=== PATIENT | female | born 1955 | race Caucasian/White ===

== ENCOUNTER 2016-07-12 12:15 | Emergency (ER) | payer OTHER ==
--- NOTE | 2016-07-12 16:19 | DIAGNOSTIC IMAGING REPORT ---
PROCEDURE: ABDOMEN/PELVIS WITH CONTRAST CLINICAL INDICATION: ABDOMINAL PAIN TECHNIQUE: 125 ml of Isovue 300 were injected intravenously and axial images were obtained of the abdomen and pelvis with sagittal and coronal reformations. COMPARISON: None. FINDINGS: ABDOMEN: Intact breast implants are present. Clear lung bases. Normal sized heart. Small hiatal hernia. Mild hyperemia of the distal gastric mucosa but no evidence of perforation or significant perigastric inflammation. The liver, gallbladder, adrenal glands, kidneys, pancreas and spleen are normal. The abdominal aorta is normal in its course and caliber. Trace atherosclerosis. There are no suspicious calcifications, retroperitoneal adenopathy or masses. The upper small bowel loops, and mesentery are normal. Intact anterior abdominal wall. No free fluid or inflammation. PELVIS: The appendix and pelvic small bowel loops are normal. Mild to moderately increased solid amount of stool in the colon and rectum. The uterus, ovaries, and pelvic vessels are normal. Incompletely filled urinary bladder demonstrates a mildly thickened wall. Correlate clinically. Trace free pelvic fluid. No adenopathy, or pelvic mass. Intact osseous structures with mild degenerative endplate changes. IMPRESSION: 1. Mild hyperemia of the distal gastric mucosa suggestive of gastritis or peptic ulcer disease without perforation. 2. Small hiatal hernia. 3. Mild to moderate retained solid stool. 4. Discussed with Dr. Bishop in the emergency room. All CT scans at this facility use dose modulation, iterative reconstruction, and/or weight-based dosing when appropriate to reduce radiation dose to as low as reasonably achievable.
--- NOTE | 2016-07-12 16:25 | ED ORDER SUMMARY ---
..... Patient: COLIN OLIVEROS OrderSheet [facility] VisitID: [id number] [address] [place] [address] 60y, F Registration Date/Time: 07/12/2016 ORDER SHEET Weight: 64.4 kg (stated) Allergies: Penicillins GENERAL ORDERS: Cardiac Panel Stat (12:51 07/12/2016 Jane MAYFIELD) (Ack 12:53 Maria Victoria) (12:57 SRlalats R.N.) Lipase Urgent (12:51 07/12/2016 Jane MAYFIELD) (Ack 12:53 Maria Victoria) (12:57 Edson R.N.) CRP Urgent (12:51 07/12/2016 Jane MAYFIELD) (Ack 12:53 Maria Victoria) (12:57 oberts R.N.) CT Abd/Pel w Cont (No) (N/A) Urgent (15:24 07/12/2016 Jane MAYFIELD) (Ack 15:25 TBergley) (16:00 Allie R.N.) MEDICATION ORDERS: GI Cocktail WHITE PO 50 mL (NOW) (12:52 07/12/2016 Jane MAYFIELD) (13:01 JOSE MANUELnebel R.N.) - (oxycodone 20 mg SR 1 po) (15:28 07/12/2016 Jane MAYFIELD) (Ack 15:30 MARAoardley R.N.) (15:39 Catarinodley R.N.) Alprazolam PO 2 mg po (NOW) (15:28 07/12/2016 Jane AMYFIELD) (Ack 15:31 Allie R.N.) (16:04 Catarinodley R.N.) IV FLUIDS: Zofran IV 4 mg (NOW) (12:52 07/12/2016 Jane MAYFIELD) (13:02 Javier R.N.) IV Saline Lock (12:52 07/12/2016 Jane MAYFIELD) (12:58 SRoberts R.N.) ORDER SHEET NOTES: [Electronically signed by Franco Marquez R.N. (16:41 07/12/2016)] [Electronically signed by Carl Bishop MD (10:16 07/13/2016)] [Electronically locked/signed by Franco Marquez R.N. (16:41 07/12/2016)]
--- NOTE | 2016-07-12 16:25 | ED NURSING NOTES ---
Clinical Report - Nurses [facility] [address] [place] [address] 07/12/2016 12:18 Patient: COLIN OLIVEROS TRIAGE Triage time 12:Jul 12 2016. Acuity: LEVEL 2. Chief Complaint: CHEST PAIN. Alert. No acute distress. KAITLIN COMA SCORE: Kaitlin Coma Scale: 15- eyes open spontaneously (4); best verbal response- oriented x 4 (5); best motor response- obeys commands (6). --12:26 Alexus Edgar R.N. 12:20 07/12/16. BP: 105/65. HR: 74. RR: 16. O2 saturation: 94%. Temp: 98.6 F. Pain level now: 08/12. --12: Alexus Edgar R.N. Weight: 64.4 kg stated. Height/Length: 62 inches Per Patient. BMI: 26. --12:26 Alexus Edgar R.N. Medications ALPRAZolam Oral (Tablet 2 mg) 2 1/2 tablets, daily in divided doses. CeleXA Oral 40 mg, daily. Estradiol Oral (Tablet 0.5 mg) 1 tablet, daily. LamoTRIgine Oral (Tablet Extended Release 24 Hour 200 mg) 1 tablet, twice daily. Omeprazole Oral 20 mg, daily. OxyCODONE HCl Oral 20 mg, 4-5 times a day. --12:22 Alexus Edgar R.N. Multivitamins Oral. --12:22 Alexus Edgar R.N. Allergies Penicillins.(vomiting) --12:22 Alexus Edgar R.N. History Arrived by private vehicle. Historian: family. Accompanied by family. Onset. (about 1 weeks). She has had nausea. 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 PAST MEDICAL HX: Immunizations: up-to-date. SOCIAL HX: Never smoker. No alcohol use or drug use. No infectious disease exposure. SELF HARM ASSESSMENT: A self harm assessment was performed. The patient answered "no" to the question "Do you have thoughts of harming or killing yourself?". FALL RISK ASSESSMENT: Fall risk assessment completed. No fall risk identified. NUTRITIONAL RISK ASSESSMENT: The nutritional risk assessment revealed no deficiencies. FUNCTIONAL ASSESSMENT: Functional assessment: no impairments noted. LEARNING NEEDS ASSESSMENT: The learning needs assessment revealed no barriers. ABUSE ASSESSMENT: Abuse assessment: The patient was asked "Do you feel safe in your home?". SKIN INTEGRITY ASSESSMENT: Skin integrity risk assessment completed. No skin integrity risk identified. --12:26 Alexus Edgar R.N. PROBLEMS: Dysfunctional Uterine Bleeding. Diarrhea. Vomiting. Immunizations. LNMP - Last Normal Menstrual Period. Gastroesophageal Reflux Disease. Back Pain. Back Injury. Bipolar Disorder. --12:23 Alexus Edgar R.N. ADDITIONAL SURGERIES: Dental Surgery. Dilatation & Curettage. Laparoscopy. --12:23 Alexus Edgar R.N. Interventions ID band on patient. To room. --12: Alexus Edgar R.N. PHYSICAL ASSESSMENT GENERAL / NEURO / PSYCH: Alert. Oriented X 4. RESPIRATORY: Respirations not labored. Lower sternal tenderness and xiphoid tenderness. CVS: Capillary refill less than 2 seconds. GI / : Abdomen soft. Abdominal tenderness in the upper abdomen. EXTREMITIES: No lower extremity edema. SKIN: Skin is warm and dry. --12:27 Alexus Edgar R.N. NURSING PROGRESS NOTES biofuels processing technician, pulse oximeter and NIBP monitor placed on patient; applications tester- Lead II; monitor alarms on. Patient gowned. Head of bed elevated. Patient identifiers checked. Call light placed in reach. Side rails up x 1. Bed placed in lowest position. Brakes of bed on. --12:28 Alexus Edgar R.N. 12:28 07/12/2016 Site #1 started via IV in the right hand with an 20g angiocath, with aseptic technique and good blood return; one attempt. Blood drawn: rainbow set. Labeled in the presence of the patient and sent to the lab. Saline lock flushed with 10 mL saline. --12:28 Alexus Edgar R.N. EKG time: (1227). EKG was ordered, performed by a tech and shown to the ED physician. --12:29 July, Miriam, ER Tech1 13:01 07/12/2016 GI Cocktail (Magnesium-Aluminum) PO. Allergies verified and confirmed 5 rights. --13:01 Alexus Edgar R.N. 13:02 07/12/2016 Zofran (Ondansetron HCl) IVP 4 mg given over 2 minute(s) via site #1. Allergies verified and confirmed 5 rights. IV patency established. IV site checked: no pain, redness, or swelling. IV flushed thoroughly pre- and post-medication administration. IVP given by RN. --13:02 Alexus Edgar R.N. 13:35 07/12/16. BP: 103/72. HR: 80. RR: 22. O2 saturation: 94%. Pain level now: 08/12. --13:36 Alexus Edgar R.N. 13:56 07/12/16. BP: 98/54. HR: 82. RR: 14. O2 saturation: 97% on room air. --13:57 Franco Marquez R.N. 13:57 07/12/16. Cardiac rhythm: normal sinus rhythm. --13:57 Franco Marquez R.N. 14:01 07/12/16. Reassessment after medication administered. Overall patient status is the same- she states feels the same. --14:01 Franco Marquez R.N. 15:39 07/12/2016 Oxycodone SR (Oxycodone-Acetaminophen) PO Tablets 20 mg given. Allergies verified, confirmed 5 rights and sedative warning given to the patient. --15:39 Franco Marquez R.N. 16:04 07/12/2016 Alprazolam PO 2 mg given. Allergies verified, confirmed 5 rights and sedative warning given to the patient. --16:04 Franco Marquez R.N. DISPOSITION / DISCHARGE 16:37 07/12/2016 Site #1 removed upon discharge. Catheter intact. Bandage applied. --16:37 Franco Marquez R.N. 16:37 07/12/16. Condition at departure: improved. The goals identified in the patient's plan of care were met. No learning barriers present. Discharge instructions provided and reviewed with the patient and spouse. Reviewed warnings. Reviewed medication(s). Treatments reviewed. Patient and spouse verbalized understanding. Written instructions provided in Belgian. ( Called in RX per DC instructions to [facility] per patient request). The patient was discharged by the physician. She was discharged home and accompanied by family. She left the Emergency Department ambulatory and via private vehicle. Family member driving. FALL RISK ASSESSMENT: Fall risk assessment completed. No fall risk identified. --16:39 Franco Marquez R.N. 16:37 07/12/16. BP: 101/60. HR: 79. RR: 16. O2 saturation: 100% on room air. Temp: 97.9 F (oral). Pain level now: 04/14. --16:39 Franco Marquez R.N. 16:39 07/12/16. Departure time: 16:39. --16:39 Franco Marquez R.N. Locked/Released at 07/12/2016 16:41 by Franco Marquez R.N.
--- NOTE | 2016-07-12 16:25 | ED CLINICAL REPORT ---
Clinical Report - Physicians/Mid Levels [facility] [address] [place] [address] 07/12/2016 12:18 Patient: COLIN OLIVEROS Time Seen: 12:39 Jul 12 2016. Arrived- By private vehicle. Historian- patient. CPT: ER phys charges level 5 (#248999). HISTORY OF PRESENT ILLNESS Chief Complaint: CHEST PAIN. This started about 1 weeks RN BUILDING and is still present. It was gradual in onset and has been constant (lasting 24 hours a day.). Onset during light activity. It is described as "pain" and it is described as located in the epigastric area. At its maximum, severity described as moderate. When seen in the E.D., severity described as moderate. Modifying factors. Not worsened by anything. Not relieved by anything. The patient has had nausea. (Does develop nausea when trying to eat.). Similar symptoms previously: None. Recent medical care: Not recently seen/assessed. REVIEW OF SYSTEMS No fever, chills, cough, pedal edema or calf pain. No fainting episodes, sore throat, black stools, difficulty with urination or skin rash. No enlarged lymph nodes, joint pain or bloody stools. The patient has had abdominal pain. All systems otherwise negative, except as recorded above. PAST HISTORY Dysfunctional Uterine Bleeding. Diarrhea. Vomiting. Immunizations. LNMP - Last Normal Menstrual Period. Gastroesophageal Reflux Disease. Back Pain. Back Injury. Bipolar Disorder. ADDITIONAL SURGERIES: Dental Surgery. Dilatation & Curettage. Laparoscopy. No history of coronary artery disease, heart disease, lung disease, GI disease or heart rhythm problems. No history of pulmonary embolism, hypertension or diabetes mellitus. Medications: Multivitamins Oral. ALPRAZolam Oral (Tablet 2 mg) 2 1/2 tablets, daily in divided doses. CeleXA Oral 40 mg, daily. Estradiol Oral (Tablet 0.5 mg) 1 tablet, daily. LamoTRIgine Oral (Tablet Extended Release 24 Hour 200 mg) 1 tablet, twice daily. Omeprazole Oral 20 mg, daily. OxyCODONE HCl Oral 20 mg, 4-5 times a day. Allergies: Penicillins.(vomiting). SOCIAL HISTORY Never smoker. No alcohol use or drug use. ADDITIONAL NOTES The nursing notes have been reviewed. PHYSICAL EXAM Vital Signs: 07/12/2016 12:20 BP: 105/65. HR: 74. RR: 16. O2 saturation: 94%. Temp: 98.6 F. Pain level now: 08/12. Appearance: Alert. No acute distress. Eyes: Pupils equal, round and reactive to light. Eyes normal inspection. ENT: Ears normal. Nose normal. Pharynx normal. Neck: Normal inspection. Neck supple. CVS: Normal heart rate and rhythm. Heart sounds normal. Pulses normal. Respiratory: No respiratory distress. Breath sounds normal. Chest nontender. Abdomen: Soft. Moderate tenderness in the epigastric area with guarding present. Abnormal bowel sounds: diminished. No mass. Back: Normal external inspection. No CVA tenderness. Skin: Skin warm. Normal skin color. No rash. Extremities: Extremities exhibit normal ROM. No calf tenderness. No lower extremity edema. Neuro: Oriented X 3. No motor deficit. No sensory deficit. Reflexes normal. LABS, X-RAYS, AND EKG EKG: Normal sinus rhythm. Normal P waves. Normal SHEILA. Normal QRS complex. Normal axis. non-specific T wave changes anterolateral.,. Prior EKG unavailable. The study has been interpreted contemporaneously. The study has been independently viewed by me. The EKG appears to be a good tracing. Abdominal CT: Moderate retained stool , small hiatal hernia and moderate gastritis. Laboratory Tests: CBC w Diff: (KENIA: 07/12/2016 12:30) ( MsgRcvd 07/12/2016 13:02) Final results Test Result Flag Units (Reference) WHITE BLOOD COUNT 5.4 K/uL (4.5-11.5) RED BLOOD COUNT 4.20 M/uL (4.00-5.20) HEMOGLOBIN 11.5 L gm/dL (12.0-16.0) HEMATOCRIT 35.2 L % (36.0-46.0) MEAN CELL VOLUME 84 fL (80-100) MEAN CORPUSCULAR HGB 27 pg (26-34) MEAN CORPUSCULAR HGB CONC 33 g/dL (31-37) RED CELL DISTRIBUTION WIDTH 14.3 % (11.6-14.8) PLATELET COUNT 304 K/uL (150-400) NEUTROPHIL % 60.7 % (50-75) LYMPH % 29.8 % (25-40) MONO % 5.9 % (3-14) EOSINOPHIL % 3.3 % (0-4) BASOPHIL % 0.3 % (0-2) CHEM 13 PANEL: (KENIA: 07/12/2016 12:30) ( MsgRcvd 07/12/2016 15:10) Final results Test Result Flag Units (Reference) GLUCOSE 99 mg/dL (70-110) BUN 10 mg/dL (7-18) CREATININE 0.9 mg/dL (0.6-1.3) Estimated GFR >60 mL/min Estimated GFR- >60 mL/min Note: Persistent reduction over 3 months in eGFR<60 mL/min/1.73 m2 defines CKD. Patients with eGFR values>=60 mL/min/1.73 m2 may also have CKD if evidence ofpersistent proteinuria. Additional information may be foundat www.kidney.org. SODIUM 142 mmol/L (136-145) POTASSIUM 4.0 mmol/L (3.5-5.1) CHLORIDE 102 mmol/L (98-107) CARBON DIOXIDE 31 mmol/L (21-32) CALCIUM 8.9 mg/dL (8.5-10.1) TOTAL PROTEIN 7.8 g/dL (6.4-8.2) ALBUMIN 4.1 g/dL (3.3-5.0) BILIRUBIN, TOTAL 0.2 mg/dL (0.0-1.0) ALKALINE PHOSPHATASE 69 U/L (46-116) AST (SGOT) 21 U/L (15-37) ALT (SGPT) 25 U/L (12-78) MAGNESIUM 1.9 mg/dL (1.8-2.4) LIPASE 142 U/L (73-393) CPK 103 U/L (24-260) TROPONIN I <0.05 ng/mL (0.00-1.5) TROPONIN REFERENCE RANGE:<0.1 NEGATIVE0.1-1.5 INDETERMINANT>1.5 POSITIVE C-REACTIVE PROTEIN < 0.2 mg/dL (0.0-0.9) . PROGRESS AND PROCEDURES Course of Care: Heplock Zofran 4 mg Iv White GI cocktail. notesa she is a heavy cola drinker and eats a lot of chocolate. Patient/family counseled. Disposition: Discharged. Condition: stable. CLINICAL IMPRESSION Chest pain of GI origin (due to hiatal hernia) (gastritis). INSTRUCTIONS Avoid alcohol and NSAIDS. Examples of NSAIDS include aspirin, ibuprofen (Advil) and naproxen (Aleve). Avoid spicy foods. Other diet: No caffeine, no cola and no chocolate. No alcohol. Warnings: Further evaluation is necessary. SEDATIVE MEDICATION: You were given sedative medication during your visit. Do not drive or operate dangerous machinery. GENERAL WARNINGS: Return or contact your physician immediately if your condition worsens or changes unexpectedly, if not improving as expected, or if other problems arise. Your Current Medications: CONTINUE TAKING THE FOLLOWING MEDICATIONS: ALPRAZolam Oral : Tablet 2 mg, 2 1/2 tablets daily in divided doses. CeleXA Oral : 40 mg daily. Estradiol Oral : Tablet 0.5 mg, 1 tablet daily. LamoTRIgine Oral : Tablet Extended Release 24 Hour 200 mg, 1 tablet twice daily. Multivitamins Oral. Omeprazole Oral : 20 mg daily. OxyCODONE HCl Oral : 20 mg 4-5 times a day. Prescription Medications: Carafate 1 gm tablets: take 1 orally four times daily (1 hour before meals and at bedtime). Dispense sixty (60). No refills. Substitution is permissible. Prilosec 40 mg capsules: take 1 capsule orally every day for 10 days. Dispense ten (10). No refill. Substitution is permissible. Follow-up: Follow up with your doctor in ten days. Call for an appointment. Understanding of the discharge instructions verbalized by patient. Discharge instructions reviewed with and understanding was verbalized by spouse. (Electronically signed by Carl Bishop MD 07/13/2016 10:16)
--- NOTE | 2016-07-12 16:25 | ED ORDER SUMMARY ---
..... Patient: COLIN OLIVEROS OrderSheet [facility] VisitID: [id number] [address] [place] [address] 60y, F Registration Date/Time: 07/12/2016 ORDER SHEET Weight: 64.4 kg (stated) Allergies: Penicillins GENERAL ORDERS: Cardiac Panel Stat (12:51 07/12/2016 Jane MAYFIELD) (Ack 12:53 Maria Victoria) (12:57 SRlalats R.N.) Lipase Urgent (12:51 07/12/2016 Jane MAYFIELD) (Ack 12:53 Maria Victoria) (12:57 Edson R.N.) CRP Urgent (12:51 07/12/2016 Jane MAYFIELD) (Ack 12:53 Maria Victoria) (12:57 oberts R.N.) CT Abd/Pel w Cont (No) (N/A) Urgent (15:24 07/12/2016 Jane MAYFIELD) (Ack 15:25 TBergley) (16:00 Allie R.N.) MEDICATION ORDERS: GI Cocktail WHITE PO 50 mL (NOW) (12:52 07/12/2016 Jane MYAFIELD) (13:01 JOSE MANUELnebel R.N.) - (oxycodone 20 mg SR 1 po) (15:28 07/12/2016 Jane MAYFIELD) (Ack 15:30 MARAoardley R.N.) (15:39 Catarinodley R.N.) Alprazolam PO 2 mg po (NOW) (15:28 07/12/2016 Jane MAYFIELD) (Ack 15:31 Allie R.N.) (16:04 Catarinodley R.N.) IV FLUIDS: Zofran IV 4 mg (NOW) (12:52 07/12/2016 Jane MAYFIELD) (13:02 Javier R.N.) IV Saline Lock (12:52 07/12/2016 Jane MAYFIELD) (12:58 SRoberts R.N.) ORDER SHEET NOTES: [Electronically signed by Franco Marquez R.N. (16:41 07/12/2016)] [Electronically signed by Carl Bishop MD (10:16 07/13/2016)] [Electronically locked/signed by Franco Marquez R.N. (16:41 07/12/2016)]
--- NOTE | 2016-07-12 16:25 | ED NURSING NOTES ---
Clinical Report - Nurses [facility] [address] [place] [address] 07/12/2016 12:18 Patient: COLIN OLIVEROS TRIAGE Triage time 12:Jul 12 2016. Acuity: LEVEL 2. Chief Complaint: CHEST PAIN. Alert. No acute distress. KAITLIN COMA SCORE: Kaitlin Coma Scale: 15- eyes open spontaneously (4); best verbal response- oriented x 4 (5); best motor response- obeys commands (6). --12:26 Alexus Edgar R.N. 12:20 07/12/16. BP: 105/65. HR: 74. RR: 16. O2 saturation: 94%. Temp: 98.6 F. Pain level now: 08/12. --12: Alexus Edgar R.N. Weight: 64.4 kg stated. Height/Length: 62 inches Per Patient. BMI: 26. --12:26 Alexus Edgar R.N. Medications ALPRAZolam Oral (Tablet 2 mg) 2 1/2 tablets, daily in divided doses. CeleXA Oral 40 mg, daily. Estradiol Oral (Tablet 0.5 mg) 1 tablet, daily. LamoTRIgine Oral (Tablet Extended Release 24 Hour 200 mg) 1 tablet, twice daily. Omeprazole Oral 20 mg, daily. OxyCODONE HCl Oral 20 mg, 4-5 times a day. --12:22 Alexus Edgar R.N. Multivitamins Oral. --12:22 Alexus Edgar R.N. Allergies Penicillins.(vomiting) --12:22 Alexus Edgar R.N. History Arrived by private vehicle. Historian: family. Accompanied by family. Onset. (about 1 weeks). She has had nausea. 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 PAST MEDICAL HX: Immunizations: up-to-date. SOCIAL HX: Never smoker. No alcohol use or drug use. No infectious disease exposure. SELF HARM ASSESSMENT: A self harm assessment was performed. The patient answered "no" to the question "Do you have thoughts of harming or killing yourself?". FALL RISK ASSESSMENT: Fall risk assessment completed. No fall risk identified. NUTRITIONAL RISK ASSESSMENT: The nutritional risk assessment revealed no deficiencies. FUNCTIONAL ASSESSMENT: Functional assessment: no impairments noted. LEARNING NEEDS ASSESSMENT: The learning needs assessment revealed no barriers. ABUSE ASSESSMENT: Abuse assessment: The patient was asked "Do you feel safe in your home?". SKIN INTEGRITY ASSESSMENT: Skin integrity risk assessment completed. No skin integrity risk identified. --12:26 Alexus Edgar R.N. PROBLEMS: Dysfunctional Uterine Bleeding. Diarrhea. Vomiting. Immunizations. LNMP - Last Normal Menstrual Period. Gastroesophageal Reflux Disease. Back Pain. Back Injury. Bipolar Disorder. --12:23 Alexus Edgar R.N. ADDITIONAL SURGERIES: Dental Surgery. Dilatation & Curettage. Laparoscopy. --12:23 Alexus Edgar R.N. Interventions ID band on patient. To room. --12: Alexus Edgar R.N. PHYSICAL ASSESSMENT GENERAL / NEURO / PSYCH: Alert. Oriented X 4. RESPIRATORY: Respirations not labored. Lower sternal tenderness and xiphoid tenderness. CVS: Capillary refill less than 2 seconds. GI / : Abdomen soft. Abdominal tenderness in the upper abdomen. EXTREMITIES: No lower extremity edema. SKIN: Skin is warm and dry. --12:27 Alexus Edgar R.N. NURSING PROGRESS NOTES cardiac monitor, pulse oximeter and NIBP monitor placed on patient; engine monitor- Lead II; monitor alarms on. Patient gowned. Head of bed elevated. Patient identifiers checked. Call light placed in reach. Side rails up x 1. Bed placed in lowest position. Brakes of bed on. --12:28 Alexus Edgar R.N. 12:28 07/12/2016 Site #1 started via IV in the right hand with an 20g angiocath, with aseptic technique and good blood return; one attempt. Blood drawn: rainbow set. Labeled in the presence of the patient and sent to the lab. Saline lock flushed with 10 mL saline. --12:28 Alexus Edgar R.N. EKG time: (1227). EKG was ordered, performed by a tech and shown to the ED physician. --12:29 July, Miriam, ER Tech1 13:01 07/12/2016 GI Cocktail (Magnesium-Aluminum) PO. Allergies verified and confirmed 5 rights. --13:01 Alexus Edgar R.N. 13:02 07/12/2016 Zofran (Ondansetron HCl) IVP 4 mg given over 2 minute(s) via site #1. Allergies verified and confirmed 5 rights. IV patency established. IV site checked: no pain, redness, or swelling. IV flushed thoroughly pre- and post-medication administration. IVP given by RN. --13:02 Alexus Edgar R.N. 13:35 07/12/16. BP: 103/72. HR: 80. RR: 22. O2 saturation: 94%. Pain level now: 08/12. --13:36 Alexus Edgar R.N. 13:56 07/12/16. BP: 98/54. HR: 82. RR: 14. O2 saturation: 97% on room air. --13:57 Franco Maqruez R.N. 13:57 07/12/16. Cardiac rhythm: normal sinus rhythm. --13:57 Franco Marquez R.N. 14:01 07/12/16. Reassessment after medication administered. Overall patient status is the same- she states feels the same. --14:01 Franco Marquez R.N. 15:39 07/12/2016 Oxycodone SR (Oxycodone-Acetaminophen) PO Tablets 20 mg given. Allergies verified, confirmed 5 rights and sedative warning given to the patient. --15:39 Franco Marquez R.N. 16:04 07/12/2016 Alprazolam PO 2 mg given. Allergies verified, confirmed 5 rights and sedative warning given to the patient. --16:04 Franco Marquez R.N. DISPOSITION / DISCHARGE 16:37 07/12/2016 Site #1 removed upon discharge. Catheter intact. Bandage applied. --16:37 Franco Marquez R.N. 16:37 07/12/16. Condition at departure: improved. The goals identified in the patient's plan of care were met. No learning barriers present. Discharge instructions provided and reviewed with the patient and spouse. Reviewed warnings. Reviewed medication(s). Treatments reviewed. Patient and spouse verbalized understanding. Written instructions provided in Qatari. ( Called in RX per DC instructions to [facility] per patient request). The patient was discharged by the physician. She was discharged home and accompanied by family. She left the Emergency Department ambulatory and via private vehicle. Family member driving. FALL RISK ASSESSMENT: Fall risk assessment completed. No fall risk identified. --16:39 Franco Marquez R.N. 16:37 07/12/16. BP: 101/60. HR: 79. RR: 16. O2 saturation: 100% on room air. Temp: 97.9 F (oral). Pain level now: 04/14. --16:39 Franco Marquez R.N. 16:39 07/12/16. Departure time: 16:39. --16:39 Franco Marquez R.N. Locked/Released at 07/12/2016 16:41 by Franco Marquez R.N.
--- NOTE | 2016-07-13 10:17 | ED DISCHARGE INSTRUCTIONS ---
Patient: COLIN OLIVEROS General Instructions [facility] VisitID: [id number] [place] [address] 60y, F Registration Date/Time: 07/12/2016 Chest pain of GI origin (due to hiatal hernia) (gastritis). INSTRUCTIONS Avoid alcohol and NSAIDS. Examples of NSAIDS include aspirin, ibuprofen (Advil) and naproxen (Aleve). Avoid spicy foods. Other diet: No caffeine, no cola and no chocolate. No alcohol. Warnings: Further evaluation is necessary. SEDATIVE MEDICATION: You were given sedative medication during your visit. Do not drive or operate dangerous machinery. GENERAL WARNINGS: Return or contact your physician immediately if your condition worsens or changes unexpectedly, if not improving as expected, or if other problems arise. Your Current Medications: CONTINUE TAKING THE FOLLOWING MEDICATIONS: ALPRAZolam Oral : Tablet 2 mg, 2 1/2 tablets daily in divided doses. CeleXA Oral : 40 mg daily. Estradiol Oral : Tablet 0.5 mg, 1 tablet daily. LamoTRIgine Oral : Tablet Extended Release 24 Hour 200 mg, 1 tablet twice daily. Multivitamins Oral. Omeprazole Oral : 20 mg daily. OxyCODONE HCl Oral : 20 mg 4-5 times a day. Prescription Medications: Carafate 1 gm tablets: take 1 orally four times daily (1 hour before meals and at bedtime). Dispense sixty (60). No refills. Substitution is permissible. Prilosec 40 mg capsules: take 1 capsule orally every day for 10 days. Dispense ten (10). No refill. Substitution is permissible. Follow-up: Follow up with your doctor in ten days. Call for an appointment. Understanding of the discharge instructions verbalized by patient. Discharge instructions reviewed with and understanding was verbalized by spouse. ADDITIONAL INFORMATION [place] Diet A bland diet is used for patients with an upset stomach. It consists of foods that are mild and easy to digest. It is better to eat small frequent meals rather than three large meals a day. BEVERAGES OK: Fruit juices, non-caffeinated teas and coffee, non-carbonated renee AVOID: Carbonated beverage, caffeinated tea and coffee, all alcoholic beverages BREAD OK: Refined white, wheat or rye bread, lalito or soda crackers, Lauren toast, plain rolls, bagels AVOID: Whole-grain bread CEREAL OK: Refined cereals: cooked or ready to eat AVOID: Whole grain cereals and granola, or those containing bran, seeds or nuts DESSERTS OK: Peanut butter and all others except those to "avoid" AVOID: Chocolate, cocoa, coconut, popcorn, nuts, seeds, jam, marmalade FRUITS OK: Canned, cooked, frozen or fresh fruits without seeds or tough skin AVOID: Olives, skin and seeds of fruit MEATS OK: All fresh or preserved meat, fish and fowl AVOID: Any that are prepared with those spices to "avoid" CHEESE & EGGS OK: Eggs, cottage cheese, cream cheese, other cheeses AVOID: All cheeses made with those spices to "avoid" POTATOES & PASTA OK: Potato, rice, macaroni, noodles, spaghetti AVOID: None SOUPS OK: All soups without heavy seasoning AVOID: Soups made with those spices to "avoid" VEGETABLES OK: Canned, cooked, fresh or frozen mildly flavored vegetables without seeds, skins or coarse fiber AVOID: Vegetables prepared with those spices to "avoid"; skin and seeds of vegetables and those with coarse fiber SPICES OK: Salt, lemon and [place] juice, vinegar, all extracts, gisel, cinnamon, thyme, mace, allspice, paprika AVOID: [place] powder, cloves, pepper, seed spices, garlic, gravy pickles, highly seasoned salad dressings Omeprazole Magnesium Gastro-resistant tablet What is this medicine? OMEPRAZOLE (oh ME pray zol) prevents the production of acid in the stomach. It is used to treat the symptoms of heartburn. You can buy this medicine without a prescription. This product is not for long-term use, unless otherwise directed by your doctor or health caretaker grounds. How should I use this medicine? Take this medicine by mouth. Follow the directions on the product label. If you are taking this medicine without a prescription, take one tablet every day. Do not use for longer than 14 days or repeat a course of treatment more often than every 4 months unless directed by a doctor or healthcare professional. Take your dose at regular intervals every 24 hours. Swallow the tablet whole with a drink of water. Do not crush, break or chew. This medicine works best if taken on an empty stomach 30 minutes before breakfast. If you are using this medicine with the prescription of your doctor or healthcare professional, follow the directions you were given. Do not take your medicine more often than directed. Talk to your driver/guide regarding the use of this medicine in children. Special care may be needed. What side effects may I notice from receiving this medicine? Side effects that you should report to your doctor or health caretaker grounds as soon as possible: allergic reactions like skin rash, itching or hives, swelling of the face, lips, or tongue bone, muscle or joint pain breathing problems chest pain or chest tightness dark yellow or brown urine diarrhea dizziness fast, irregular heartbeat feeling faint or lightheaded fever or sore throat muscle spasm palpitations redness, blistering, peeling or loosening of the skin, including inside the mouth seizures tremors unusual bleeding or bruising unusually weak or tired yellowing of the eyes or skin Side effects that usually do not require medical attention (Report these to your doctor or health caretaker grounds if they continue or are bothersome.): constipation dry mouth headache loose stools nausea What may interact with this medicine? Do not take this medicine with any of the following medications: atazanavir clopidogrel nelfinavir This medicine may also interact with the following medications: ampicillin certain medicines for anxiety or sleep certain medicines that treat or prevent blood clots like warfarin cyclosporine diazepam digoxin disulfiram iron salts phenytoin prescription medicine for fungal or yeast infection like itraconazole, ketoconazole, voriconazole saquinavir tacrolimus What if I miss a dose? If you miss a dose, take it as soon as you can. If it is almost time for your next dose, take only that dose. Do not take double or extra doses. Where should I keep my medicine? Keep out of the reach of children. Store at room temperature between 20 and 25 degrees C (68 and 77 degrees F). Protect from light and moisture. Throw away any unused medicine after the expiration date. What should I tell my health care provider before I take this medicine? They need to know if you have any of these conditions: black or bloody stools chest pain difficulty swallowing have had heartburn for over 3 months have heartburn with dizziness, lightheadedness or sweating liver disease stomach pain unexplained weight loss vomiting with blood wheezing an unusual or allergic reaction to omeprazole, other medicines, foods, dyes, or preservatives or trying to get breast-feeding What should I watch for while using this medicine? It can take several days before your heartburn gets better. Check with your doctor or health caretaker grounds if your condition does not start to get better, or if it gets worse. Do not treat diarrhea with over the counter products. Contact your doctor if you have diarrhea that lasts more than 2 days or if it is severe and watery. Do not treat yourself for heartburn with this medicine for more than 14 days in a row. You should only use this medicine for a 2-week treatment period once every 4 months. If your symptoms return shortly after your therapy is complete, or within the 4 month time frame, call your doctor or health caretaker grounds. You have been given the following additional information: Diet, [place] (Adult) Omeprazole Magnesium Gastro-resistant tablet (Electronically signed by Carl Bishop MD 07/13/2016 10:16)
--- NOTE | 2016-07-13 10:17 | ED MED RECONCILIATION SUMMARY ---
Patient: COLIN OLIVEROS Medication Reconciliation Report [facility] VisitID: [id number] [address] [place] [address] 60y, F Registration Date/Time: 07/12/2016 Weight: 64.4 kg Height/Length: 62 in. BMI: 26.0 ALLERGIES: Penicillins The patient's Home Medications are listed below: CONTINUE TAKING THE FOLLOWING MEDICATIONS: ALPRAZolam Oral (2 mg) 2 1/2 tablets, daily in divided doses CeleXA Oral 40 mg, daily Estradiol Oral (0.5 mg) 1 tablet, daily LamoTRIgine Oral (200 mg) 1 tablet, twice daily Multivitamins Oral Omeprazole Oral 20 mg, daily OxyCODONE HCl Oral 20 mg, 4-5 times a day The source(s) of the original Home Medication information: Not obtained. The following Medications were given to the patient in the Emergency Department: GI Cocktail [PO] PO, administered: 07/12/2016 1:01:00 PM Zofran [IVP] IVP 4 mg, administered: 07/12/2016 1:02:00 PM Oxycodone SR [PO] PO 20 mg, administered: 07/12/2016 3:39:00 PM Alprazolam [PO] PO 2 mg, administered: 07/12/2016 4:04:00 PM The following Medications were prescribed to the patient: Carafate 1 gm tablets: take 1 orally four times daily (1 hour before meals and at bedtime). Dispense sixty (60). No refills. Substitution is permissible. -- Carl Bishop MD Prilosec 40 mg capsules: take 1 capsule orally every day for 10 days. Dispense ten (10). No refill. Substitution is permissible. -- Carl Bishop MD
--- NOTE | 2016-07-13 10:17 | ED MED RECONCILIATION SUMMARY ---
Patient: COLIN OLIVEROS Medication Reconciliation Report [facility] VisitID: [id number] [address] [place] [address] 60y, F Registration Date/Time: 07/12/2016 Weight: 64.4 kg Height/Length: 62 in. BMI: 26.0 ALLERGIES: Penicillins The patient's Home Medications are listed below: CONTINUE TAKING THE FOLLOWING MEDICATIONS: ALPRAZolam Oral (2 mg) 2 1/2 tablets, daily in divided doses CeleXA Oral 40 mg, daily Estradiol Oral (0.5 mg) 1 tablet, daily LamoTRIgine Oral (200 mg) 1 tablet, twice daily Multivitamins Oral Omeprazole Oral 20 mg, daily OxyCODONE HCl Oral 20 mg, 4-5 times a day The source(s) of the original Home Medication information: Not obtained. The following Medications were given to the patient in the Emergency Department: GI Cocktail [PO] PO, administered: 07/12/2016 1:01:00 PM Zofran [IVP] IVP 4 mg, administered: 07/12/2016 1:02:00 PM Oxycodone SR [PO] PO 20 mg, administered: 07/12/2016 3:39:00 PM Alprazolam [PO] PO 2 mg, administered: 07/12/2016 4:04:00 PM The following Medications were prescribed to the patient: Carafate 1 gm tablets: take 1 orally four times daily (1 hour before meals and at bedtime). Dispense sixty (60). No refills. Substitution is permissible. -- Carl Bishop MD Prilosec 40 mg capsules: take 1 capsule orally every day for 10 days. Dispense ten (10). No refill. Substitution is permissible. -- Carl Bishop MD
--- NOTE | 2016-07-13 10:17 | ED MAR SUMMARY ---
..... Medication Administration Record [facility] [address] [place] [address] Patient: COLIN OLIVEROS Visit ID: [id number] 60y, F Weight: 64.4 kg Height/Length: 62 in BMI: 26 ALLERGIES: Penicillins Given 13:01 07/12/2016 Alexus Edgar R.N. Medication Administered: GI COCKTAIL [PO] (MAGNESIUM-ALUMINUM), Dose: PO. Medication Ordered: GI Cocktail WHITE PO 50 mL (NOW). Given 13:02 07/12/2016 Alexus Edgar R.N. Medication Administered: ZOFRAN [IVP] (ONDANSETRON HCL), Dose: 4 mg IVP over 2 minute(s), Site: #1 right hand. Medication Ordered: Zofran IV 4 mg (NOW). Given 15:39 07/12/2016 Franco Marquez R.N. Medication Administered: OXYCODONE SR [PO] (OXYCODONE-ACETAMINOPHEN), Dose: 20 mg Tablets PO. Medication Ordered: - (oxycodone 20 mg SR 1 po). Given 16:04 07/12/2016 Franco Marquez R.N. Medication Administered: ALPRAZOLAM [PO], Dose: 2 mg PO. Medication Ordered: Alprazolam PO 2 mg po (NOW).
--- NOTE | 2016-07-13 10:17 | ED MAR SUMMARY ---
..... Medication Administration Record [facility] [address] [place] [address] Patient: COLIN OLIVEROS Visit ID: [id number] 60y, F Weight: 64.4 kg Height/Length: 62 in BMI: 26 ALLERGIES: Penicillins Given 13:01 07/12/2016 Alexus Edgar R.N. Medication Administered: GI COCKTAIL [PO] (MAGNESIUM-ALUMINUM), Dose: PO. Medication Ordered: GI Cocktail WHITE PO 50 mL (NOW). Given 13:02 07/12/2016 Alexus Edgar R.N. Medication Administered: ZOFRAN [IVP] (ONDANSETRON HCL), Dose: 4 mg IVP over 2 minute(s), Site: #1 right hand. Medication Ordered: Zofran IV 4 mg (NOW). Given 15:39 07/12/2016 Franco Marquez R.N. Medication Administered: OXYCODONE SR [PO] (OXYCODONE-ACETAMINOPHEN), Dose: 20 mg Tablets PO. Medication Ordered: - (oxycodone 20 mg SR 1 po). Given 16:04 07/12/2016 Franco Marquez R.N. Medication Administered: ALPRAZOLAM [PO], Dose: 2 mg PO. Medication Ordered: Alprazolam PO 2 mg po (NOW).
--- NOTE | 2016-07-13 10:17 | ED DISCHARGE INSTRUCTIONS ---
Patient: COLIN OLIVEROS General Instructions [facility] VisitID: [id number] [place] [address] 60y, F Registration Date/Time: 07/12/2016 Chest pain of GI origin (due to hiatal hernia) (gastritis). INSTRUCTIONS Avoid alcohol and NSAIDS. Examples of NSAIDS include aspirin, ibuprofen (Advil) and naproxen (Aleve). Avoid spicy foods. Other diet: No caffeine, no cola and no chocolate. No alcohol. Warnings: Further evaluation is necessary. SEDATIVE MEDICATION: You were given sedative medication during your visit. Do not drive or operate dangerous machinery. GENERAL WARNINGS: Return or contact your physician immediately if your condition worsens or changes unexpectedly, if not improving as expected, or if other problems arise. Your Current Medications: CONTINUE TAKING THE FOLLOWING MEDICATIONS: ALPRAZolam Oral : Tablet 2 mg, 2 1/2 tablets daily in divided doses. CeleXA Oral : 40 mg daily. Estradiol Oral : Tablet 0.5 mg, 1 tablet daily. LamoTRIgine Oral : Tablet Extended Release 24 Hour 200 mg, 1 tablet twice daily. Multivitamins Oral. Omeprazole Oral : 20 mg daily. OxyCODONE HCl Oral : 20 mg 4-5 times a day. Prescription Medications: Carafate 1 gm tablets: take 1 orally four times daily (1 hour before meals and at bedtime). Dispense sixty (60). No refills. Substitution is permissible. Prilosec 40 mg capsules: take 1 capsule orally every day for 10 days. Dispense ten (10). No refill. Substitution is permissible. Follow-up: Follow up with your doctor in ten days. Call for an appointment. Understanding of the discharge instructions verbalized by patient. Discharge instructions reviewed with and understanding was verbalized by spouse. ADDITIONAL INFORMATION [place] Diet A bland diet is used for patients with an upset stomach. It consists of foods that are mild and easy to digest. It is better to eat small frequent meals rather than three large meals a day. BEVERAGES OK: Fruit juices, non-caffeinated teas and coffee, non-carbonated renee AVOID: Carbonated beverage, caffeinated tea and coffee, all alcoholic beverages BREAD OK: Refined white, wheat or rye bread, lalito or soda crackers, Lauren toast, plain rolls, bagels AVOID: Whole-grain bread CEREAL OK: Refined cereals: cooked or ready to eat AVOID: Whole grain cereals and granola, or those containing bran, seeds or nuts DESSERTS OK: Peanut butter and all others except those to "avoid" AVOID: Chocolate, cocoa, coconut, popcorn, nuts, seeds, jam, marmalade FRUITS OK: Canned, cooked, frozen or fresh fruits without seeds or tough skin AVOID: Olives, skin and seeds of fruit MEATS OK: All fresh or preserved meat, fish and fowl AVOID: Any that are prepared with those spices to "avoid" CHEESE & EGGS OK: Eggs, cottage cheese, cream cheese, other cheeses AVOID: All cheeses made with those spices to "avoid" POTATOES & PASTA OK: Potato, rice, macaroni, noodles, spaghetti AVOID: None SOUPS OK: All soups without heavy seasoning AVOID: Soups made with those spices to "avoid" VEGETABLES OK: Canned, cooked, fresh or frozen mildly flavored vegetables without seeds, skins or coarse fiber AVOID: Vegetables prepared with those spices to "avoid"; skin and seeds of vegetables and those with coarse fiber SPICES OK: Salt, lemon and [place] juice, vinegar, all extracts, gisel, cinnamon, thyme, mace, allspice, paprika AVOID: [place] powder, cloves, pepper, seed spices, garlic, gravy pickles, highly seasoned salad dressings Omeprazole Magnesium Gastro-resistant tablet What is this medicine? OMEPRAZOLE (oh ME pray zol) prevents the production of acid in the stomach. It is used to treat the symptoms of heartburn. You can buy this medicine without a prescription. This product is not for long-term use, unless otherwise directed by your doctor or health family member caretaker. How should I use this medicine? Take this medicine by mouth. Follow the directions on the product label. If you are taking this medicine without a prescription, take one tablet every day. Do not use for longer than 14 days or repeat a course of treatment more often than every 4 months unless directed by a doctor or healthcare professional. Take your dose at regular intervals every 24 hours. Swallow the tablet whole with a drink of water. Do not crush, break or chew. This medicine works best if taken on an empty stomach 30 minutes before breakfast. If you are using this medicine with the prescription of your doctor or healthcare professional, follow the directions you were given. Do not take your medicine more often than directed. Talk to your personnel analyst regarding the use of this medicine in children. Special care may be needed. What side effects may I notice from receiving this medicine? Side effects that you should report to your doctor or health family member caretaker as soon as possible: allergic reactions like skin rash, itching or hives, swelling of the face, lips, or tongue bone, muscle or joint pain breathing problems chest pain or chest tightness dark yellow or brown urine diarrhea dizziness fast, irregular heartbeat feeling faint or lightheaded fever or sore throat muscle spasm palpitations redness, blistering, peeling or loosening of the skin, including inside the mouth seizures tremors unusual bleeding or bruising unusually weak or tired yellowing of the eyes or skin Side effects that usually do not require medical attention (Report these to your doctor or health family member caretaker if they continue or are bothersome.): constipation dry mouth headache loose stools nausea What may interact with this medicine? Do not take this medicine with any of the following medications: atazanavir clopidogrel nelfinavir This medicine may also interact with the following medications: ampicillin certain medicines for anxiety or sleep certain medicines that treat or prevent blood clots like warfarin cyclosporine diazepam digoxin disulfiram iron salts phenytoin prescription medicine for fungal or yeast infection like itraconazole, ketoconazole, voriconazole saquinavir tacrolimus What if I miss a dose? If you miss a dose, take it as soon as you can. If it is almost time for your next dose, take only that dose. Do not take double or extra doses. Where should I keep my medicine? Keep out of the reach of children. Store at room temperature between 20 and 25 degrees C (68 and 77 degrees F). Protect from light and moisture. Throw away any unused medicine after the expiration date. What should I tell my health care provider before I take this medicine? They need to know if you have any of these conditions: black or bloody stools chest pain difficulty swallowing have had heartburn for over 3 months have heartburn with dizziness, lightheadedness or sweating liver disease stomach pain unexplained weight loss vomiting with blood wheezing an unusual or allergic reaction to omeprazole, other medicines, foods, dyes, or preservatives or trying to get breast-feeding What should I watch for while using this medicine? It can take several days before your heartburn gets better. Check with your doctor or health family member caretaker if your condition does not start to get better, or if it gets worse. Do not treat diarrhea with over the counter products. Contact your doctor if you have diarrhea that lasts more than 2 days or if it is severe and watery. Do not treat yourself for heartburn with this medicine for more than 14 days in a row. You should only use this medicine for a 2-week treatment period once every 4 months. If your symptoms return shortly after your therapy is complete, or within the 4 month time frame, call your doctor or health family member caretaker. You have been given the following additional information: Diet, [place] (Adult) Omeprazole Magnesium Gastro-resistant tablet (Electronically signed by Carl Bishop MD 07/13/2016 10:16)
== END 2016-07-12 16:39 | disposition home or self-care (01) ==
LOC: ED SRH 12:15
DX: K29.70 Gastritis, unspecified, without bleeding (principal); K44.9 Diaphragmatic hernia without obstruction or gangrene; R07.89 Other chest pain; Z88.0 Allergy status to penicillin; Z79.899 Other long term (current) drug therapy
CPT/HCPCS: 90100; 90616; 91585; 92235; 92610; 92720; 95059